=== PATIENT | female | born 1950 | race Caucasian/White ===

== ENCOUNTER 2018-03-07 12:31 | Day surgery (SDC) | payer MEDICARE, OTHER ==
[~2018-03-07] VITALS: Ht 167.6 cm; Wt 67.4 kg
[~2018-03-07 12:31] MED LIST: BREATHE RIGHT1 EACH; BUPR150ER; Hair, Skin & N1 EACH; KRILL OIL500 MG; Omeprazole20 M1
== END 2018-03-07 15:14 | disposition home or self-care (01) ==
LOC: ORSCSDS 12:31
PROVIDERS: Internal Medicine Gastroenterology
PROC: 0DJD8ZZ Inspection of Lower Intestinal Tract, Via Natural or Artificial Opening Endoscopic (ICD-10-PCS; principal; 2018-03-07 13:45)
PROC: 0DB68ZX Excision of Stomach, Via Natural or Artificial Opening Endoscopic, Diagnostic (ICD-10-PCS; principal; 2018-03-07 13:45)
PROC: 0DB58ZX Excision of Esophagus, Via Natural or Artificial Opening Endoscopic, Diagnostic (ICD-10-PCS; principal; 2018-03-07 13:45)
DX: K21.9 Gastro-esophageal reflux disease without esophagitis (principal); K44.9 Diaphragmatic hernia without obstruction or gangrene; K57.30 Diverticulosis of large intestine without perforation or abscess without bleeding; Z12.11 Encounter for screening for malignant neoplasm of colon
CPT/HCPCS: 43239; G0121; 87081; 88305

== ENCOUNTER → 2021-02-12 | Outpatient (CLI) | payer MEDICARE, OTHER ==
[~2021-02-12] MED LIST changes: +LEVSOD25 PO
== END | disposition home or self-care (01) ==
LOC: LAB SHORT 12:23 → LAB 12:23
DX: L82.1 Other seborrheic keratosis (principal)
CPT/HCPCS: 88305

== ENCOUNTER → 2022-05-27 | Outpatient (CLI) | payer MEDICARE, OTHER | LOC: LAB SHORT 11:13 → PLD 11:13 | DX: L57.0 Actinic keratosis (principal) | CPT/HCPCS: 88305 ==

== ENCOUNTER 2024-10-21 15:16 | Emergency (ER) | payer OTHER ==
[~2024-10-21] VITALS: Ht 165.1 cm; Wt 64.4 kg
[2024-10-21 15:34] VITALS: BP 123/91
[2024-10-21] MEDS ORDERED: NS 1,000 ML IV SCH (15:40)
[2024-10-21 16:00] LABS: BASOPHILS ABSOLUTE AUTO 0.05 K/mm3 (0.00-0.23); BASOPHILS PERCENT AUTO 1 % (0-2); EOSINOPHILS ABSOLUTE AUTO 0.13 K/mm3 (0.00-0.68); EOSINOPHILS PERCENT AUTO 2 % (0-6); Hematocrit 40.8 % (33.0-51.0); IMMATURE GRAN ABSOLUTE AUTO 0.02 K/mm3 (0.00-0.10); IMMATURE GRAN PERCENT AUTO 0 % (0-1); LYMPHOCYTES ABSOLUTE AUTO 1.64 K/mm3 (0.84-5.20); LYMPHOCYTES PERCENT AUTO 25 % (21-46); MONOCYTES ABSOLUTE AUTO 0.67 K/mm3 (0.16-1.47); MONOCYTES PERCENT AUTO 10 % (4-13); Mean Corpuscular HGB 29.2 pg (26.0-34.0); Mean Corpuscular HGB Conc 34.3 g/dL (31.5-36.5); Mean Corpuscular Volume 85 fL (80-100); Mean Platelet Volume 9.7 fL (9.1-12.4); NEUTROPHILS ABSOLUTE AUTO 3.97 K/mm3 (1.96-9.15); NEUTROPHILS PERCENT AUTO 61 % (41-73); Platelet Count 313 K/mm3 (150-400); RDW Standard Deviation 37.5 fL (35.1-46.3); White Blood Cell Count 6.48 K/mm3 (4.00-11.30)
[2024-10-21 16:28] LABS: Albumin/Globulin Ratio 1.2 (0.8-1.8); Bilirubin, Total 0.7 mg/dL (0.1-1.0); Bun/Creatinine Ratio 27.3 (12.0-20.0); Calcium, Blood 9.1 mg/dL (8.5-10.1); Creatinine, Blood 0.7 mg/dL (0.40-1.00); Globulin, Blood 3.3 g/dL (2.2-4.0); Magnesium, Blood 1.9 mg/dL (1.6-2.4); Potassium, Blood 3.8 mmol/L (3.5-5.5); Total Protein, Blood 7.3 g/dL (6.4-8.2)
[2024-10-21 17:40] LABS: Source, Urine Clean Catch
[2024-10-21 17:52] LABS: Influenza A, PCR NEGATIVE (NEGATIVE); Influenza B, PCR NEGATIVE (NEGATIVE); Resp Syncytial Virus, PCR NEGATIVE (NEGATIVE); SARS-Cov-2 (COVID-19) PCR, MMC NEGATIVE (NEGATIVE)
[2024-10-21 17:55] LABS: Appearance, Urine Clear (Clear); Bilirubin, Urine Neg (Neg); Blood, Urine 1+ (Neg); Glucose Qualitative, Urine Neg (Neg); Ketones, Urine 2+ (Neg); Leukocyte Esterase, Urine 2+ (Neg); Nitrite, Urine Neg (Neg); Protein, Urine Neg (Neg); Urobilinogen, Urine NORM (Normal)
[2024-10-21 17:57] LABS: Color, Urine Pale Yellow (P-Yellow)
[2024-10-21 18:02] LABS: Bacteria Few /hpf; Squamous Epithelial Cells Few /hpf (Few)
[2024-10-21] MEDS ORDERED: CEPH500 PO (18:41)
[2024-10-21] MEDS ORDERED: Cephalexin Monohydrate 500 MG Cap PO ONE (18:45)
[2024-10-22 22:53] LABS: MYOGLOBIN SERUM 35 ng/mL (<=58)
[2024-10-23] MEDS ORDERED: CEPH500 PO (09:15)
== END 2024-10-21 18:54 | disposition home or self-care (01) ==
LOC: ER 15:16
PROVIDERS: Emergency Medicine
DX: N39.0 Urinary tract infection, site not specified (principal); E03.9 Hypothyroidism, unspecified; Z79.899 Other long term (current) drug therapy; Z88.5 Allergy status to narcotic agent
CPT/HCPCS: 0241U; 71045; 74177; 80053; 81001; 82550; 83690; 83735; 83874; 85025; 93005; 93010; 99284-25; A9270; Q9967

== ENCOUNTER 2025-01-26 09:24 | Emergency (ER) | payer OTHER ==
[~2025-01-26] VITALS: Ht 165.1 cm; Wt 72.6 kg
[~2025-01-26 09:24] MED LIST changes: +CEPH500 PO
[2025-01-26 09:54] VITALS: BP 165/97
[2025-01-26 10:09] LABS: BASOPHILS ABSOLUTE AUTO 0.07 K/mm3 (0.00-0.23); BASOPHILS PERCENT AUTO 1 % (0-2); EOSINOPHILS ABSOLUTE AUTO 0.19 K/mm3 (0.00-0.68); EOSINOPHILS PERCENT AUTO 3 % (0-6); Hematocrit 39.1 % (33.0-51.0); Hemoglobin 13.0 g/dL (11.5-16.0); IMMATURE GRAN ABSOLUTE AUTO 0.01 K/mm3 (0.00-0.10); IMMATURE GRAN PERCENT AUTO 0 % (0-1); LYMPHOCYTES ABSOLUTE AUTO 2.41 K/mm3 (0.84-5.20); LYMPHOCYTES PERCENT AUTO 37 % (21-46); MONOCYTES ABSOLUTE AUTO 0.58 K/mm3 (0.16-1.47); MONOCYTES PERCENT AUTO 9 % (4-13); Mean Corpuscular HGB Conc 33.2 g/dL (31.5-36.5); Mean Corpuscular Volume 87 fL (80-100); NEUTROPHILS ABSOLUTE AUTO 3.19 K/mm3 (1.96-9.15); NEUTROPHILS PERCENT AUTO 49 % (41-73); NRBC ABSOLUTE 0.00 K/mm3 (0.00-0.02); NRBC Auto 0.0 /100 WBC (0.0-0.2); Platelet Count 302 K/mm3 (150-400); RDW Coefficient Variation 12.5 % (11.7-14.2); RDW Standard Deviation 40.2 fL (35.1-46.3)
[2025-01-26 10:39] LABS: Alanine Aminotransfer (ALT/SGP 38.0 U/L (12-78); Albumin, Blood 4.0 g/dL (3.4-5.0); Albumin/Globulin Ratio 1.2 (0.8-1.8); Anion Gap 5.0 mmol/L (3-11); Aspartate Aminotrans (AST/SGOT 27.0 U/L (12-37); Bilirubin, Total 0.7 mg/dL (0.1-1.0); Blood Urea Nitrogen 17.0 mg/dL (8-24); CO2, Blood 30.0 mmol/L (21-32); Calcium, Blood 9.2 mg/dL (8.5-10.1); Chloride, Blood 106.0 mmol/L (98-108); Creatinine, Blood 0.76 mg/dL (0.40-1.00); Globulin, Blood 3.2 g/dL (2.2-4.0); Glucose, Blood 93.0 mg/dL (70-99); Potassium, Blood 3.9 mmol/L (3.5-5.5); Sodium, Blood 137.0 mmol/L (136-145); Total Protein, Blood 7.2 g/dL (6.4-8.2)
[2025-01-26 11:19] LABS: Source, Urine Clean Catch
[2025-01-26 11:30] LABS: Bilirubin, Urine Neg (Neg); Glucose Qualitative, Urine Neg (Neg); Ketones, Urine Neg (Neg); Leukocyte Esterase, Urine Neg (Neg); Protein, Urine Neg (Neg); Specific Gravity, Urine 1.010 (1.003-1.022); Urobilinogen, Urine NORM (Normal)
[2025-01-26 11:43] LABS: Color, Urine Pale Yellow (P-Yellow)
== END 2025-01-26 12:36 | disposition home or self-care (01) ==
LOC: ER 09:24
PROVIDERS: Emergency Medicine
DX: K57.30 Diverticulosis of large intestine without perforation or abscess without bleeding (principal); N20.0 Calculus of kidney; Z88.5 Allergy status to narcotic agent; Z79.2 Long term (current) use of antibiotics; Z79.899 Other long term (current) drug therapy
CPT/HCPCS: 74177; 80053; 81003; 85025; 99284-25; Q9967

== ENCOUNTER → 2025-01-31 | Outpatient (CLI) | payer OTHER | LOC: LAB 18:21 → LAB SHORT 18:21 | DX: R82.81 Pyuria (principal) | CPT/HCPCS: 87086 ==

== ENCOUNTER 2025-03-29 08:30 | Day surgery (SDC) | payer OTHER ==
[~2025-03-29] VITALS: Ht 167.6 cm; Wt 65.1 kg
[~2025-03-29 08:30] MED LIST changes: +Balanced Salt Epinephrine Irrigation Solution 500 mL IR SCH; +Moxifloxacin HCL 0.5 MG/0.1 ML 0.4MLSYR RIGHTEYE SCH; +Ondansetron 4 MG SoluTab MM PRN; +PHENYLEPHRINE\\TROPICAMIDE\\TETRACAINE OPHTHALMIC DILATING SOLN RIGHTEYE PRN; +Povidone-Iodine 450 DROP/30 ML Solution ONE; +Povidone-Iodine 450 DROP/30 ML Solution RIGHTEYE SCH; +Tetracaine HCl/Pf 0.5% Opth Soln 4 ml ONE; +Triamcinolone Inj Susp 40 MG / ML 1ML Vial INJ SCH; +Triamcinolone Inj Susp 40 MG / ML 1ML Vial ONE
[2025-03-29] MEDS ORDERED: Tetracaine HCl 0.5% Opth Soln 15 ml ONE (09:21)
--- NOTE | 2025-03-29 09:36 | NUR ---
03/29/25 0936 Mora Johnson 0932: INITIAL ANXIETY 08/28 0835: 10 MG PO VALIUM GIVEN PER ORDERS. PULSE OX ON FINGER, CALL LIGHT IN HAND.
[2025-03-29] MEDS ORDERED: EUTHYROX50 MC1 PO (09:38)
[2025-03-29] MEDS ORDERED: ATORVASTATIN CA20 MG PO (09:39)
[2025-03-29] MEDS ORDERED: LOSARTAN POTASS25 M2 PO (09:39)
[2025-03-29] MEDS ORDERED: MULTIVITAMIN (09:40)
[2025-03-29] MEDS ORDERED: FAMO20 (09:40)
[2025-03-29] MEDS ORDERED: Aspir 8181 MG PO (09:41)
--- NOTE | 2025-03-29 10:13 | NUR ---
03/29/25 1013 Martina Vail HR:76 BP:133/81 SPO2:96% ON 10L BLOW BY O2
[2025-03-29 10:28] VITALS: BP 127/79
--- NOTE | 2025-03-29 10:34 | NUR ---
03/29/[address] AT BEDSIDE
== END 2025-03-29 10:46 | disposition home or self-care (01) ==
LOC: ORSCSDS 08:30
PROVIDERS: Ophthalmology
PROC: 08RJ3JZ Replacement of Right Lens with Synthetic Substitute, Percutaneous Approach (ICD-10-PCS; principal; 2025-03-29 10:00)
DX: H25.811 Combined forms of age-related cataract, right eye (principal); H52.4 Presbyopia; I10 Essential (primary) hypertension; E03.9 Hypothyroidism, unspecified; K21.9 Gastro-esophageal reflux disease without esophagitis; Z79.899 Other long term (current) drug therapy
CPT/HCPCS: A9270; J3301; V2632

== ENCOUNTER 2025-04-12 09:20 | Day surgery (SDC) | payer OTHER ==
[~2025-04-12] VITALS: Ht 167.6 cm; Wt 64.5 kg
[~2025-04-12 09:20] MED LIST changes: +ATORVASTATIN CA20 MG PO; +Aspir 8181 MG PO; +EUTHYROX50 MC1 PO; +FAMO20; +LOSARTAN POTASS25 M2 PO; +MULTIVITAMIN; +Moxifloxacin HCL 0.5 MG/0.1 ML 0.4MLSYR LEFTEYE SCH; -Moxifloxacin HCL 0.5 MG/0.1 ML 0.4MLSYR RIGHTEYE SCH; +PHENYLEPHRINE\\TROPICAMIDE\\TETRACAINE OPHTHALMIC DILATING SOLN LEFTEYE PRN; -PHENYLEPHRINE\\TROPICAMIDE\\TETRACAINE OPHTHALMIC DILATING SOLN RIGHTEYE PRN; +Povidone-Iodine 450 DROP/30 ML Solution LEFTEYE SCH; -Povidone-Iodine 450 DROP/30 ML Solution RIGHTEYE SCH
--- NOTE | 2025-04-12 09:49 | NUR ---
04/12/25 0949 Mora Johnson initial anxiety 07/28 per patient report
--- NOTE | 2025-04-12 10:28 | NUR ---
04/12/25 1028 Alisa Miller 1024 BP:144/85 HR:77 O2:97% RESP:16
[2025-04-12 10:45] VITALS: BP 139/87
== END 2025-04-12 11:03 | disposition home or self-care (01) ==
LOC: ORSCSDS 09:20
PROVIDERS: Ophthalmology
PROC: 08RK3JZ Replacement of Left Lens with Synthetic Substitute, Percutaneous Approach (ICD-10-PCS; principal; 2025-04-12 11:00)
DX: H25.812 Combined forms of age-related cataract, left eye (principal); Z96.1 Presence of intraocular lens; I10 Essential (primary) hypertension; E03.9 Hypothyroidism, unspecified; K21.9 Gastro-esophageal reflux disease without esophagitis; Z79.899 Other long term (current) drug therapy
CPT/HCPCS: A9270; J3301; V2632